=== PATIENT | male | born 1935 | race Caucasian/White ===

== ENCOUNTER 2017-10-22 11:43 | Inpatient (IN) | payer MEDICARE, OTHER, MEDICAID ==
[2017-10-22 14:34] LABS: ADD MAN DIFF? NO
[2017-10-22 14:38] LABS: BASOPHILS % 0.5 % (0.0-2.0); EOSINOPHILS # 0.2 10^3/ul (0.0-0.5); EOSINOPHILS % 2.9 % (0.0-7.0); HEMATOCRIT 26.1 % (42.0-52.0); LYMPHOCYTES # 1.2 10^3/ul (0.8-2.9); LYMPHOCYTES % 15.3 % (15.0-51.0); MEAN CORPUSCULAR HEMOGLOBIN 27.6 pg (29.0-33.0); MEAN CORPUSCULAR HGB CONC 30.7 g/dl (32.0-37.0); MEAN PLATELET VOLUME 9.9 fl (7.4-10.4); MONOCYTE # 0.8 10^3/ul (0.3-0.9); MONOCYTES % 9.7 % (0.0-11.0); NEUTROPHIL # 5.7 10^3/ul (1.6-7.5); PLATELET COUNT 402 10^3/UL (140-415); RED CELL DISTRIBUTION WIDTH 17.8 % (11.5-14.5)
[2017-10-22 14:59] LABS: ALANINE AMINOTRANSFERASE 17 IU/L (13-69); ALBUMIN 3.1 g/dl (3.3-4.9); ALBUMIN/GLOBULIN RATIO 0.56; ALKALINE PHOSPHATASE 129 IU/L (42-121); ANION GAP 18 (8-16); ASPARTATE AMINO TRANSFERASE 24 IU/L (15-46); BLOOD UREA NITROGEN 81 mg/dl (7-20); CALCIUM 9.1 mg/dl (8.4-10.2); CARBON DIOXIDE 24 mmol/L (21-31); CHLORIDE 100 mmol/L (97-110); CREATININE 1.79 mg/dl (0.61-1.24); GLUCOSE 77 mg/dl (70-220); LACTATE DEHYDROGENASE 408 IU/L (313-618); SODIUM 138 mmol/L (135-144); TOTAL PROTEIN 8.6 g/dl (6.1-8.1)
[2017-10-22 15:01] LABS: INR 1.39; IRON 49 ug/dl (35-150); PROTIME 17.3 Sec (11.9-14.9); PT RATIO 1.4
[2017-10-22 15:02] LABS: PARTIAL THROMBOPLASTIN TIME 40.2 Sec (25.0-35.0)
[2017-10-22 15:10] LABS: % IRON SATURATION 38 % SAT (22-52); TOTAL IRON BINDING CAPACITY 128 ug/dl (241-421)
[2017-10-22] MEDS: IPRATROPIUM (NEB) 0.5 MG/2.5 ML AMP NEB (15:25)
[2017-10-22] MEDS: ALBUTEROL 0.083% (NEB) 2.5 MG/3 ML AMP NEB (15:25)
[2017-10-22 15:40] LABS: ADD UMIC YES; UR ASCORBIC ACID 40 mg/dL (NEGATIVE); UR BACTERIA MANY /HPF (NONE SEEN); UR BILIRUBIN (Dip) NEGATIVE (NEGATIVE); UR BLOOD (Dip) NEGATIVE (NEGATIVE); UR CLARITY TURBID (CLEAR); UR COLOR AMBER (YELLOW); UR GLUCOSE (Dip) NEGATIVE (NEGATIVE); UR KETONES (Dip) NEGATIVE (NEGATIVE); UR LEUKOCYTE ESTERASE (Dip) 3+ Leu/ul (NEGATIVE); UR MUCUS FEW /HPF (NONE SEEN); UR NITRITE (Dip) NEGATIVE (NEGATIVE); UR NONSQUAMOUS EPITHELIAL CELL 4 /HPF (NONE SEEN); UR RBC 70 /HPF (0-5); UR SPECIFIC GRAVITY (Dip) 1.012 (1.003-1.030); UR TOTAL PROTEIN (Dip) 2+ mg/dl (NEGATIVE); UR UROBILINOGEN (Dip) NEGATIVE (NEGATIVE); UR WBC > 182 /HPF (0-5)
[2017-10-22] MEDS ORDERED: ONDANSETRON 4 MG INJ IV (16:00)
[2017-10-22] MEDS: CEFTRIAXONE 1 GM/50 ML (PMX) 50 ML IVPB (16:02)
[2017-10-22] MEDS: morphine 4 MG/ML VIAL IV (16:24)
[2017-10-22] MEDS: ONDANSETRON 4 MG INJ IV (16:24)
[2017-10-22] MEDS ORDERED: LOPERAMIDE 2 MG CAP PO (17:00)
[2017-10-22] MEDS ORDERED: LACTOBACILLUS ACIDOPHILUS GTB (21:00)
[2017-10-22] MEDS: CARBOXYMETHYLCELLULOSE 0.5% 0.1 ML OPH BOTH EYES (22:56)
[2017-10-22] MEDS: ACETAMINOPHEN 325 MG TAB PO (22:56)
[2017-10-22] MEDS: ASCORBIC ACID 500 MG TAB GTB (22:56)
[2017-10-22] MEDS: MEROPENEM 500MG/50 ML (PMX) 50 ML IVPB (22:56)
[2017-10-22] MEDS: LANSOPRAZOLE 30 MG CAP GTB (22:57)
[2017-10-22] MEDS: DEXTROSE 5%-0.45% NACL 1,000 ML IV (23:03)
[2017-10-23] MEDS: LORAZEPAM 0.5 MG TAB GTB (01:09)
[2017-10-23] MEDS: LANSOPRAZOLE 30 MG CAP GTB ×2 (05:35→17:17)
[2017-10-23 05:46] LABS: ADD MAN DIFF? NO
[2017-10-23 05:48] LABS: WHITE BLOOD COUNT 7.4 10^3/ul (4.8-10.8)
[2017-10-23 05:48] LABS: BASOPHILS % 0.5 % (0.0-2.0); EOSINOPHILS # 0.4 10^3/ul (0.0-0.5); EOSINOPHILS % 4.7 % (0.0-7.0); HEMATOCRIT 24.7 % (42.0-52.0); HEMOGLOBIN 7.9 g/dl (14.0-18.0); LYMPHOCYTES # 1.1 10^3/ul (0.8-2.9); LYMPHOCYTES % 14.8 % (15.0-51.0); MEAN CORPUSCULAR HEMOGLOBIN 28.1 pg (29.0-33.0); MEAN CORPUSCULAR VOLUME 87.9 fl (82.0-101.0); MEAN PLATELET VOLUME 10.1 fl (7.4-10.4); MONOCYTE # 0.8 10^3/ul (0.3-0.9); MONOCYTES % 10.6 % (0.0-11.0); NEUTROPHIL # 5.1 10^3/ul (1.6-7.5); NEUTROPHILS % 68.7 % (39.0-77.0); PLATELET COUNT 406 10^3/UL (140-415); RED BLOOD COUNT 2.81 10^6/ul (4.70-6.10); RED CELL DISTRIBUTION WIDTH 17.6 % (11.5-14.5)
[2017-10-23 06:16] LABS: ANION GAP 18 (8-16); BLOOD UREA NITROGEN 74 mg/dl (7-20); CALCIUM 8.8 mg/dl (8.4-10.2); CARBON DIOXIDE 22 mmol/L (21-31); CHLORIDE 103 mmol/L (97-110); CREATININE 1.77 mg/dl (0.61-1.24); GLUCOSE 71 mg/dl (70-220); POTASSIUM 3.5 mmol/L (3.5-5.1); SODIUM 139 mmol/L (135-144)
[2017-10-23] MEDS: ASCORBIC ACID 500 MG TAB GTB ×2 (09:04→21:53)
[2017-10-23] MEDS: ASPIRIN 81 MG TAB GTB (09:05)
[2017-10-23] MEDS: CARBOXYMETHYLCELLULOSE 0.5% 0.1 ML OPH BOTH EYES ×2 (09:06→21:51)
[2017-10-23] MEDS: MULTIVITAMINS/MINERALS TAB GTB (09:23)
[2017-10-23] MEDS: FERROUS SULFATE 60 MG/ML 5ML CUP GTB (09:23)
[2017-10-23] MEDS: MEROPENEM 500MG/50 ML (PMX) 50 ML IVPB ×2 (09:23→21:51)
[2017-10-23] MEDS: DEXTROSE 5%-0.45% NACL 1,000 ML IV ×3 (12:05→23:18)
[2017-10-23] MEDS: HYDROCODONE/APAP (5/325) TAB PO (17:17)
[2017-10-24 05:54] LABS: ADD MAN DIFF? NO
[2017-10-24 06:13] LABS: WHITE BLOOD COUNT 7.6 10^3/ul (4.8-10.8)
[2017-10-24 06:13] LABS: BASOPHILS % 0.5 % (0.0-2.0); EOSINOPHILS # 0.3 10^3/ul (0.0-0.5); EOSINOPHILS % 3.5 % (0.0-7.0); HEMATOCRIT 27.4 % (42.0-52.0); HEMOGLOBIN 8.5 g/dl (14.0-18.0); LYMPHOCYTES # 1.1 10^3/ul (0.8-2.9); LYMPHOCYTES % 14.8 % (15.0-51.0); MEAN CORPUSCULAR HEMOGLOBIN 28.1 pg (29.0-33.0); MEAN CORPUSCULAR VOLUME 90.4 fl (82.0-101.0); MEAN PLATELET VOLUME 9.8 fl (7.4-10.4); MONOCYTE # 0.7 10^3/ul (0.3-0.9); MONOCYTES % 9.5 % (0.0-11.0); NEUTROPHIL # 5.4 10^3/ul (1.6-7.5); NEUTROPHILS % 70.8 % (39.0-77.0); PLATELET COUNT 426 10^3/UL (140-415); RED BLOOD COUNT 3.03 10^6/ul (4.70-6.10); RED CELL DISTRIBUTION WIDTH 18.1 % (11.5-14.5)
[2017-10-24 06:47] LABS: ANION GAP 16 (8-16); BLOOD UREA NITROGEN 73 mg/dl (7-20); CALCIUM 8.8 mg/dl (8.4-10.2); CARBON DIOXIDE 24 mmol/L (21-31); CHLORIDE 106 mmol/L (97-110); GLUCOSE 105 mg/dl (70-220); POTASSIUM 4.4 mmol/L (3.5-5.1); SODIUM 142 mmol/L (135-144)
[2017-10-24] MEDS: ASCORBIC ACID 500 MG TAB GTB ×2 (09:43→20:40)
[2017-10-24] MEDS: MULTIVITAMINS 30 ML CUP PEG (09:43)
[2017-10-24] MEDS: FERROUS SULFATE 60 MG/ML 5ML CUP GTB (09:43)
[2017-10-24] MEDS: LANSOPRAZOLE 30 MG CAP GTB ×2 (09:43→19:18)
[2017-10-24] MEDS: LACTOBACILLUS RHAMNOSUS CAP PO ×2 (09:44→20:41)
[2017-10-24] MEDS: ASPIRIN 81 MG TAB GTB (09:44)
[2017-10-24] MEDS ORDERED: PENDING SANTYL ORDER FOR WOUND CARE XX (10:00)
[2017-10-24] MEDS: MEROPENEM 500MG/50 ML (PMX) 50 ML IVPB ×2 (10:57→20:40)
[2017-10-24] MEDS: EPOETIN ALFA (NESRD) 3,000 UNITS/ML VIAL IV (11:00)
[2017-10-24] MEDS: CARBOXYMETHYLCELLULOSE 0.5% 0.1 ML OPH BOTH EYES ×2 (11:00→21:00)
[2017-10-24] MEDS: ALBUTEROL/IPRATROPIUM (NEB) 3 ML AMP INH (18:02)
[2017-10-24] MEDS ORDERED: EPOETIN 10000 UNITS/ML (NON ESRD/NON ONCOLOGY) SC (19:30)
[2017-10-24] MEDS: POVIDONE IODINE 10% 28.4 GM OINT TOP (20:00)
[2017-10-24] MEDS: DEXTROSE 5%-0.45% NACL 1,000 ML IV (20:30)
[2017-10-24] MEDS: ACETAMINOPHEN 650MG/20.3ML CUP GTB (20:40)
[2017-10-24] MEDS: SODIUM HYPOCHLORITE 0.125% 473 ML BTL IRR (20:41)
[2017-10-25] MEDS: SODIUM HYPOCHLORITE 0.125% 473 ML BTL IRR ×2 (00:15→21:53)
[2017-10-25] MEDS: DEXTROSE 5%-0.45% NACL 1,000 ML IV ×3 (00:16→17:34)
[2017-10-25] MEDS: ALBUTEROL/IPRATROPIUM (NEB) 3 ML AMP INH (01:52)
[2017-10-25] MEDS: LANSOPRAZOLE 30 MG CAP GTB ×2 (05:40→17:34)
[2017-10-25 07:39] LABS: ADD MAN DIFF? NO
[2017-10-25 07:42] LABS: BASOPHILS % 0.3 % (0.0-2.0); EOSINOPHILS # 0.3 10^3/ul (0.0-0.5); EOSINOPHILS % 4.7 % (0.0-7.0); HEMATOCRIT 25.8 % (42.0-52.0); HEMOGLOBIN 7.8 g/dl (14.0-18.0); LYMPHOCYTES # 1.2 10^3/ul (0.8-2.9); LYMPHOCYTES % 20.4 % (15.0-51.0); MEAN CORPUSCULAR HEMOGLOBIN 27.9 pg (29.0-33.0); MEAN CORPUSCULAR HGB CONC 30.2 g/dl (32.0-37.0); MEAN CORPUSCULAR VOLUME 92.1 fl (82.0-101.0); MEAN PLATELET VOLUME 9.9 fl (7.4-10.4); MONOCYTE # 0.6 10^3/ul (0.3-0.9); NEUTROPHIL # 3.6 10^3/ul (1.6-7.5); NEUTROPHILS % 62.7 % (39.0-77.0); PLATELET COUNT 425 10^3/UL (140-415); RED CELL DISTRIBUTION WIDTH 18.1 % (11.5-14.5)
[2017-10-25 07:42] LABS: WHITE BLOOD COUNT 5.7 10^3/ul (4.8-10.8)
[2017-10-25 08:03] LABS: ANION GAP 15 (8-16); BLOOD UREA NITROGEN 60 mg/dl (7-20); CALCIUM 8.4 mg/dl (8.4-10.2); CARBON DIOXIDE 21 mmol/L (21-31); CHLORIDE 108 mmol/L (97-110); CREATININE 1.23 mg/dl (0.61-1.24); GLUCOSE 128 mg/dl (70-220); POTASSIUM 3.3 mmol/L (3.5-5.1); SODIUM 141 mmol/L (135-144)
[2017-10-25] MEDS ORDERED: POTASSIUM CHLORIDE (SR) 20 MEQ TAB PO (08:31)
[2017-10-25] MEDS: FERROUS SULFATE 60 MG/ML 5ML CUP GTB (08:58)
[2017-10-25] MEDS: ASPIRIN 81 MG TAB GTB (08:58)
[2017-10-25] MEDS: MULTIVITAMINS 30 ML CUP PEG (08:58)
[2017-10-25] MEDS: CARBOXYMETHYLCELLULOSE 0.5% 0.1 ML OPH BOTH EYES ×2 (08:58→21:52)
[2017-10-25] MEDS: LACTOBACILLUS RHAMNOSUS CAP PO ×2 (08:59→21:52)
[2017-10-25] MEDS: MEROPENEM 500MG/50 ML (PMX) 50 ML IVPB ×2 (08:59→21:52)
[2017-10-25] MEDS: POTASSIUM CHLORIDE 20 MEQ POWDER FOR ORAL SOLN PO (08:59)
[2017-10-25] MEDS: ASCORBIC ACID 500 MG TAB GTB ×2 (08:59→21:52)
[2017-10-25] MEDS: POVIDONE IODINE 10% 28.4 GM OINT TOP (09:03)
[2017-10-25 18:02] LABS: TRANSFERRIN 70 mg/dL (188-341)
[2017-10-25 20:05] LABS: OCCULT BLOOD STOOL NEGATIVE (NEGATIVE)
[2017-10-25] MEDS: IPRATROPIUM (NEB) 0.5 MG/2.5 ML AMP HHN (20:25)
[2017-10-25] MEDS: LEVALBUTEROL (NEB) 1.25 MG/0.5 ML AMP HHN (20:25)
[2017-10-26] MEDS: LEVALBUTEROL (NEB) 1.25 MG/0.5 ML AMP HHN ×4 (02:24→21:10)
[2017-10-26] MEDS: IPRATROPIUM (NEB) 0.5 MG/2.5 ML AMP HHN ×4 (02:24→21:10)
[2017-10-26 05:48] LABS: AADO2 Arterial 60.4 mmHg (7.0-24.0); Allen Test ACCEPTAB; Arterial Base Excess -2.9 mmol/L (-3.0-3); Arterial COHb 0.3 % (0.0-3.0); Arterial Fraction of Oxyhgb 97.2 % (93.0-99.0); Arterial HCO3 21.4 mmol/L (22.0-26.0); Arterial MetHb 0.5 % (0.0-1.5); Arterial Total Hemglobin 9.8 g/dl (12.0-18.0); Arterial pCO2 35.5 mmhg (35-45); MODE VENT - AC; Site Right Radial
[2017-10-26] MEDS: LANSOPRAZOLE 30 MG CAP GTB ×2 (06:37→17:42)
[2017-10-26] MEDS: FERROUS SULFATE 60 MG/ML 5ML CUP GTB (08:31)
[2017-10-26] MEDS: ASCORBIC ACID 500 MG TAB GTB ×2 (08:31→21:28)
[2017-10-26] MEDS: MULTIVITAMINS 30 ML CUP PEG (08:31)
[2017-10-26] MEDS: SODIUM HYPOCHLORITE 0.125% 473 ML BTL IRR ×2 (08:31→21:29)
[2017-10-26] MEDS: LACTOBACILLUS RHAMNOSUS CAP PO ×2 (08:31→21:29)
[2017-10-26] MEDS: ASPIRIN 81 MG TAB GTB (08:31)
[2017-10-26] MEDS: POVIDONE IODINE 10% 28.4 GM OINT TOP (08:32)
[2017-10-26] MEDS: MEROPENEM 500MG/50 ML (PMX) 50 ML IVPB ×2 (08:34→21:28)
[2017-10-26] MEDS: DEXTROSE 5%-0.45% NACL 1,000 ML IV (08:34)
[2017-10-26] MEDS: EPOETIN ALFA (NESRD) 3,000 UNITS/ML VIAL IV (08:36)
[2017-10-26] MEDS: CARBOXYMETHYLCELLULOSE 0.5% 0.1 ML OPH BOTH EYES ×2 (09:10→21:28)
[2017-10-26] MEDS: ACETAMINOPHEN 650MG/20.3ML CUP GTB (14:09)
[2017-10-26] MEDS: ZYVOX 600 MG TAB PO (15:11)
[2017-10-27] MEDS: ZYVOX 600 MG TAB PO ×3 (00:24→20:30)
[2017-10-27] MEDS: DEXTROSE 5%-0.45% NACL 1,000 ML IV (00:24)
[2017-10-27] MEDS: IPRATROPIUM (NEB) 0.5 MG/2.5 ML AMP HHN ×4 (02:02→21:53)
[2017-10-27] MEDS: LEVALBUTEROL (NEB) 1.25 MG/0.5 ML AMP HHN ×4 (02:02→21:53)
[2017-10-27] MEDS: LANSOPRAZOLE 30 MG CAP GTB ×2 (06:11→17:35)
[2017-10-27 08:36] LABS: ADD MAN DIFF? NO
[2017-10-27 08:40] LABS: WHITE BLOOD COUNT 6.8 10^3/ul (4.8-10.8)
[2017-10-27 08:40] LABS: BASOPHILS % 0.4 % (0.0-2.0); EOSINOPHILS # 0.2 10^3/ul (0.0-0.5); EOSINOPHILS % 2.5 % (0.0-7.0); HEMATOCRIT 28.7 % (42.0-52.0); HEMOGLOBIN 8.5 g/dl (14.0-18.0); LYMPHOCYTES % 14.5 % (15.0-51.0); MEAN CORPUSCULAR HEMOGLOBIN 27.3 pg (29.0-33.0); MEAN CORPUSCULAR HGB CONC 29.6 g/dl (32.0-37.0); MEAN CORPUSCULAR VOLUME 92.3 fl (82.0-101.0); MEAN PLATELET VOLUME 9.6 fl (7.4-10.4); MONOCYTE # 0.6 10^3/ul (0.3-0.9); MONOCYTES % 9.4 % (0.0-11.0); NEUTROPHIL # 4.9 10^3/ul (1.6-7.5); NUCLEATED RED BLOOD CELLS% 0.4 /100WBC (0.0-0.0); PLATELET COUNT 390 10^3/UL (140-415); RED BLOOD COUNT 3.11 10^6/ul (4.70-6.10)
[2017-10-27] MEDS: MULTIVITAMINS 30 ML CUP PEG (08:50)
[2017-10-27] MEDS: SODIUM HYPOCHLORITE 0.125% 473 ML BTL IRR ×2 (08:51→20:34)
[2017-10-27] MEDS: FERROUS SULFATE 60 MG/ML 5ML CUP GTB (08:51)
[2017-10-27] MEDS: LACTOBACILLUS RHAMNOSUS CAP PO ×2 (08:51→20:30)
[2017-10-27] MEDS: ASCORBIC ACID 500 MG TAB GTB ×2 (08:51→20:30)
[2017-10-27] MEDS: MEROPENEM 500MG/50 ML (PMX) 50 ML IVPB ×2 (08:51→20:31)
[2017-10-27] MEDS: POVIDONE IODINE 10% 28.4 GM OINT TOP (08:51)
[2017-10-27] MEDS: ASPIRIN 81 MG TAB GTB (08:51)
[2017-10-27] MEDS: CARBOXYMETHYLCELLULOSE 0.5% 0.1 ML OPH BOTH EYES ×2 (08:51→20:30)
[2017-10-27 09:04] LABS: ANION GAP 12 (8-16); BLOOD UREA NITROGEN 34 mg/dl (7-20); CALCIUM 8.5 mg/dl (8.4-10.2); CARBON DIOXIDE 23 mmol/L (21-31); CHLORIDE 110 mmol/L (97-110); CREATININE 0.78 mg/dl (0.61-1.24); GLUCOSE 127 mg/dl (70-220); SODIUM 141 mmol/L (135-144)
[2017-10-27] MEDS ORDERED: TOBRAMYCIN IV PER PHARMACY XX (13:30)
[2017-10-27] MEDS: SOD CHLORIDE 0.9% IVPB (15:22)
[2017-10-27] MEDS: TOBRAMYCIN IVPB (15:22)
[2017-10-27] MEDS: ERYTHROMYCIN BASE (EC) 250 MG TAB PO (20:30)
[2017-10-27] MEDS ORDERED: METOCLOPRAMIDE 10 MG INJ IV (21:00)
[2017-10-27] MEDS: ONDANSETRON 4 MG INJ IV (22:11)
[2017-10-28] MEDS: SOD CHLORIDE 0.9% 1,000 ML IV ×2 (01:00→13:30)
[2017-10-28] MEDS: IPRATROPIUM (NEB) 0.5 MG/2.5 ML AMP HHN ×4 (01:47→19:44)
[2017-10-28] MEDS: LEVALBUTEROL (NEB) 1.25 MG/0.5 ML AMP HHN ×4 (01:47→19:44)
[2017-10-28 05:54] LABS: ADD MAN DIFF? NO
[2017-10-28] MEDS: LANSOPRAZOLE 30 MG CAP GTB ×2 (05:54→18:31)
[2017-10-28 06:01] LABS: WHITE BLOOD COUNT 6.1 10^3/ul (4.8-10.8)
[2017-10-28 06:01] LABS: BASOPHILS % 0.2 % (0.0-2.0); EOSINOPHILS # 0.4 10^3/ul (0.0-0.5); EOSINOPHILS % 6.1 % (0.0-7.0); HEMATOCRIT 26.1 % (42.0-52.0); HEMOGLOBIN 7.8 g/dl (14.0-18.0); LYMPHOCYTES # 1.1 10^3/ul (0.8-2.9); LYMPHOCYTES % 18.2 % (15.0-51.0); MEAN CORPUSCULAR HEMOGLOBIN 27.8 pg (29.0-33.0); MEAN CORPUSCULAR HGB CONC 29.9 g/dl (32.0-37.0); MEAN CORPUSCULAR VOLUME 92.9 fl (82.0-101.0); MEAN PLATELET VOLUME 9.4 fl (7.4-10.4); MONOCYTE # 0.4 10^3/ul (0.3-0.9); MONOCYTES % 6.9 % (0.0-11.0); NEUTROPHIL # 4.1 10^3/ul (1.6-7.5); NEUTROPHILS % 67.3 % (39.0-77.0); NUCLEATED RED BLOOD CELLS% 0.3 /100WBC (0.0-0.0); PLATELET COUNT 389 10^3/UL (140-415); RED BLOOD COUNT 2.81 10^6/ul (4.70-6.10); RED CELL DISTRIBUTION WIDTH 19.3 % (11.5-14.5)
[2017-10-28 06:21] LABS: MAGNESIUM 1.6 mg/dl (1.7-2.5)
[2017-10-28 06:24] LABS: ANION GAP 13 (8-16); BLOOD UREA NITROGEN 32 mg/dl (7-20); CALCIUM 8.6 mg/dl (8.4-10.2); CARBON DIOXIDE 19 mmol/L (21-31); CHLORIDE 114 mmol/L (97-110); CREATININE 0.83 mg/dl (0.61-1.24); GLUCOSE 92 mg/dl (70-220); POTASSIUM 3.2 mmol/L (3.5-5.1); SODIUM 143 mmol/L (135-144)
[2017-10-28] MEDS: ASCORBIC ACID 500 MG TAB GTB ×2 (08:15→21:49)
[2017-10-28] MEDS: ERYTHROMYCIN BASE (EC) 250 MG TAB PO ×3 (08:15→21:49)
[2017-10-28] MEDS: FERROUS SULFATE 60 MG/ML 5ML CUP GTB (08:15)
[2017-10-28] MEDS: ASPIRIN 81 MG TAB GTB (08:15)
[2017-10-28] MEDS: MULTIVITAMINS 30 ML CUP PEG (08:15)
[2017-10-28] MEDS: ZYVOX 600 MG TAB PO ×2 (08:15→21:49)
[2017-10-28] MEDS: CARBOXYMETHYLCELLULOSE 0.5% 0.1 ML OPH BOTH EYES ×2 (08:15→21:49)
[2017-10-28] MEDS: LACTOBACILLUS RHAMNOSUS CAP PO ×2 (08:15→21:49)
[2017-10-28] MEDS: POVIDONE IODINE 10% 28.4 GM OINT TOP (08:16)
[2017-10-28] MEDS: POTASSIUM CHLORIDE 100 ML IVPB ×2 (08:16→13:39)
[2017-10-28] MEDS: SODIUM HYPOCHLORITE 0.125% 473 ML BTL IRR ×2 (08:16→21:48)
[2017-10-28] MEDS: EPOETIN ALFA (NESRD) 3,000 UNITS/ML VIAL IV (08:44)
[2017-10-28] MEDS: MAGNESIUM SULFATE 2 GM/50 ML 50 ML IVPB (10:41)
[2017-10-28] MEDS: MEROPENEM 500MG/50 ML (PMX) 50 ML IVPB ×2 (12:55→21:51)
[2017-10-28] MEDS: SOD CHLORIDE 0.9% IVPB (15:45)
[2017-10-28] MEDS: TOBRAMYCIN IVPB (15:45)
[2017-10-29] MEDS: LEVALBUTEROL (NEB) 1.25 MG/0.5 ML AMP HHN ×4 (01:29→20:20)
[2017-10-29] MEDS: IPRATROPIUM (NEB) 0.5 MG/2.5 ML AMP HHN ×4 (01:29→20:20)
[2017-10-29] MEDS: SOD CHLORIDE 0.9% 1,000 ML IV ×3 (02:12→17:05)
[2017-10-29] MEDS: LANSOPRAZOLE 30 MG CAP GTB ×2 (06:00→17:05)
[2017-10-29 07:03] LABS: ADD MAN DIFF? NO
[2017-10-29 07:13] LABS: WHITE BLOOD COUNT 5.2 10^3/ul (4.8-10.8)
[2017-10-29 07:13] LABS: BASOPHILS % 0.6 % (0.0-2.0); EOSINOPHILS # 0.3 10^3/ul (0.0-0.5); EOSINOPHILS % 5.7 % (0.0-7.0); HEMATOCRIT 28.7 % (42.0-52.0); HEMOGLOBIN 8.7 g/dl (14.0-18.0); LYMPHOCYTES % 19.3 % (15.0-51.0); MEAN CORPUSCULAR HEMOGLOBIN 27.9 pg (29.0-33.0); MEAN CORPUSCULAR HGB CONC 30.3 g/dl (32.0-37.0); MEAN PLATELET VOLUME 9.6 fl (7.4-10.4); MONOCYTE # 0.4 10^3/ul (0.3-0.9); MONOCYTES % 7.1 % (0.0-11.0); NEUTROPHIL # 3.5 10^3/ul (1.6-7.5); NEUTROPHILS % 66.2 % (39.0-77.0); PLATELET COUNT 406 10^3/UL (140-415); RED BLOOD COUNT 3.12 10^6/ul (4.70-6.10)
[2017-10-29 07:26] LABS: ANION GAP 15 (8-16); BLOOD UREA NITROGEN 26 mg/dl (7-20); CALCIUM 8.8 mg/dl (8.4-10.2); CARBON DIOXIDE 17 mmol/L (21-31); CHLORIDE 118 mmol/L (97-110); CREATININE 0.89 mg/dl (0.61-1.24); GLUCOSE 64 mg/dl (70-220); SODIUM 147 mmol/L (135-144)
[2017-10-29 07:32] LABS: POTASSIUM 2.9 mmol/L (3.5-5.1)
[2017-10-29] MEDS: MEROPENEM 500MG/50 ML (PMX) 50 ML IVPB ×2 (10:31→21:13)
[2017-10-29] MEDS: POVIDONE IODINE 10% 28.4 GM OINT TOP (10:33)
[2017-10-29] MEDS: CARBOXYMETHYLCELLULOSE 0.5% 0.1 ML OPH BOTH EYES ×2 (10:34→21:02)
[2017-10-29] MEDS: SODIUM HYPOCHLORITE 0.125% 473 ML BTL IRR ×2 (10:35→21:03)
[2017-10-29] MEDS: ERYTHROMYCIN BASE (EC) 250 MG TAB PO ×3 (11:10→21:02)
[2017-10-29] MEDS: ASPIRIN 81 MG TAB GTB (11:10)
[2017-10-29] MEDS: ASCORBIC ACID 500 MG TAB GTB ×2 (11:10→21:02)
[2017-10-29] MEDS: POTASSIUM CHLORIDE (SR) 20 MEQ TAB PO ×2 (11:11→21:01)
[2017-10-29] MEDS: ZYVOX 600 MG TAB PO ×2 (11:11→21:02)
[2017-10-29] MEDS: FERROUS SULFATE 60 MG/ML 5ML CUP GTB (11:11)
[2017-10-29] MEDS: MULTIVITAMINS 30 ML CUP PEG (11:11)
[2017-10-29] MEDS: LACTOBACILLUS RHAMNOSUS CAP PO ×2 (11:11→21:13)
[2017-10-29 13:34] LABS: MAGNESIUM 1.9 mg/dl (1.7-2.5)
[2017-10-29] MEDS: [UNRECOGNIZED DRUG - REMARK] XX (14:04)
[2017-10-29] MEDS: SOD CHLORIDE 0.9% IVPB (14:58)
[2017-10-29] MEDS: TOBRAMYCIN IVPB (14:58)
[2017-10-29 20:00] LABS: ANION GAP 13 (8-16); BLOOD UREA NITROGEN 25 mg/dl (7-20); CALCIUM 8.4 mg/dl (8.4-10.2); CARBON DIOXIDE 17 mmol/L (21-31); CHLORIDE 120 mmol/L (97-110); CREATININE 0.88 mg/dl (0.61-1.24); SODIUM 147 mmol/L (135-144)
[2017-10-29 20:06] LABS: GLUCOSE 47 mg/dl (70-220); POTASSIUM 2.9 mmol/L (3.5-5.1)
[2017-10-29] MEDS: DEXTROSE 50% 50 ML SYRINGE IV (21:01)
[2017-10-30] MEDS: IPRATROPIUM (NEB) 0.5 MG/2.5 ML AMP HHN ×4 (01:29→19:47)
[2017-10-30] MEDS: LEVALBUTEROL (NEB) 1.25 MG/0.5 ML AMP HHN ×4 (01:29→19:47)
[2017-10-30] MEDS: SOD CHLORIDE 0.9% 1,000 ML IV (06:16)
[2017-10-30] MEDS: LANSOPRAZOLE 30 MG CAP GTB ×2 (06:16→18:23)
[2017-10-30 06:57] LABS: ADD MAN DIFF? NO
[2017-10-30 06:58] LABS: BASOPHILS % 0.2 % (0.0-2.0); EOSINOPHILS # 0.2 10^3/ul (0.0-0.5); EOSINOPHILS % 3.3 % (0.0-7.0); HEMATOCRIT 26.7 % (42.0-52.0); HEMOGLOBIN 7.9 g/dl (14.0-18.0); LYMPHOCYTES # 0.8 10^3/ul (0.8-2.9); LYMPHOCYTES % 17.8 % (15.0-51.0); MEAN CORPUSCULAR HEMOGLOBIN 27.7 pg (29.0-33.0); MEAN CORPUSCULAR HGB CONC 29.6 g/dl (32.0-37.0); MEAN CORPUSCULAR VOLUME 93.7 fl (82.0-101.0); MEAN PLATELET VOLUME 9.6 fl (7.4-10.4); MONOCYTE # 0.4 10^3/ul (0.3-0.9); MONOCYTES % 7.8 % (0.0-11.0); NEUTROPHIL # 3.2 10^3/ul (1.6-7.5); NEUTROPHILS % 70.2 % (39.0-77.0); PLATELET COUNT 374 10^3/UL (140-415); RED BLOOD COUNT 2.85 10^6/ul (4.70-6.10); RED CELL DISTRIBUTION WIDTH 20.3 % (11.5-14.5)
[2017-10-30 06:58] LABS: WHITE BLOOD COUNT 4.6 10^3/ul (4.8-10.8)
[2017-10-30 07:22] LABS: ANION GAP 12 (8-16); BLOOD UREA NITROGEN 23 mg/dl (7-20); CALCIUM 8.5 mg/dl (8.4-10.2); CARBON DIOXIDE 18 mmol/L (21-31); CHLORIDE 122 mmol/L (97-110); CREATININE 0.88 mg/dl (0.61-1.24); GLUCOSE 79 mg/dl (70-220); POTASSIUM 3.2 mmol/L (3.5-5.1); SODIUM 149 mmol/L (135-144)
[2017-10-30] MEDS: FERROUS SULFATE 60 MG/ML 5ML CUP GTB (09:00)
[2017-10-30] MEDS: ASPIRIN 81 MG TAB GTB (09:17)
[2017-10-30] MEDS: LACTOBACILLUS RHAMNOSUS CAP PO ×2 (09:17→20:59)
[2017-10-30] MEDS: ERYTHROMYCIN BASE (EC) 250 MG TAB PO ×3 (09:17→20:59)
[2017-10-30] MEDS: MULTIVITAMINS 30 ML CUP PEG (09:17)
[2017-10-30] MEDS: ASCORBIC ACID 500 MG TAB GTB ×2 (09:17→20:59)
[2017-10-30] MEDS: SODIUM HYPOCHLORITE 0.125% 473 ML BTL IRR ×2 (09:18→20:59)
[2017-10-30] MEDS: POVIDONE IODINE 10% 28.4 GM OINT TOP (09:18)
[2017-10-30] MEDS: MEROPENEM 500MG/50 ML (PMX) 50 ML IVPB ×2 (09:22→21:00)
[2017-10-30] MEDS: CARBOXYMETHYLCELLULOSE 0.5% 0.1 ML OPH BOTH EYES ×2 (09:23→20:59)
[2017-10-30] MEDS: ZYVOX 600 MG TAB PO ×2 (09:23→20:59)
[2017-10-30] MEDS: POTASSIUM CHLORIDE 100 ML IVPB (16:00)
[2017-10-30] MEDS: TOBRAMYCIN 100 MG in SOD CHLORIDE 0.9% 100 ML IVPB (18:23)
[2017-10-31] MEDS: LEVALBUTEROL (NEB) 1.25 MG/0.5 ML AMP HHN ×4 (01:22→20:35)
[2017-10-31] MEDS: IPRATROPIUM (NEB) 0.5 MG/2.5 ML AMP HHN ×4 (01:22→20:35)
[2017-10-31] MEDS: LANSOPRAZOLE 30 MG CAP GTB ×2 (05:08→17:46)
[2017-10-31] MEDS: SOD CHLORIDE 0.9% 1,000 ML IV (05:08)
[2017-10-31 06:11] LABS: ADD MAN DIFF? NO
[2017-10-31 06:23] LABS: WHITE BLOOD COUNT 4.2 10^3/ul (4.8-10.8)
[2017-10-31 06:23] LABS: BASOPHILS % 0.2 % (0.0-2.0); EOSINOPHILS # 0.2 10^3/ul (0.0-0.5); EOSINOPHILS % 4.3 % (0.0-7.0); HEMATOCRIT 26.3 % (42.0-52.0); LYMPHOCYTES # 0.9 10^3/ul (0.8-2.9); LYMPHOCYTES % 21.8 % (15.0-51.0); MEAN CORPUSCULAR HEMOGLOBIN 28.2 pg (29.0-33.0); MEAN CORPUSCULAR HGB CONC 30.4 g/dl (32.0-37.0); MEAN CORPUSCULAR VOLUME 92.6 fl (82.0-101.0); MEAN PLATELET VOLUME 9.4 fl (7.4-10.4); MONOCYTE # 0.5 10^3/ul (0.3-0.9); MONOCYTES % 10.8 % (0.0-11.0); NEUTROPHIL # 2.6 10^3/ul (1.6-7.5); NEUTROPHILS % 62.2 % (39.0-77.0); PLATELET COUNT 298 10^3/UL (140-415); RED BLOOD COUNT 2.84 10^6/ul (4.70-6.10); RED CELL DISTRIBUTION WIDTH 20.1 % (11.5-14.5)
[2017-10-31 06:38] LABS: ALANINE AMINOTRANSFERASE 27 IU/L (13-69); ALBUMIN 2.6 g/dl (3.3-4.9); ALBUMIN/GLOBULIN RATIO 0.57; ALKALINE PHOSPHATASE 91 IU/L (42-121); ANION GAP 11 (8-16); ASPARTATE AMINO TRANSFERASE 23 IU/L (15-46); BLOOD UREA NITROGEN 19 mg/dl (7-20); CALCIUM 8.5 mg/dl (8.4-10.2); CARBON DIOXIDE 19 mmol/L (21-31); CHLORIDE 121 mmol/L (97-110); CREATININE 0.88 mg/dl (0.61-1.24); GLUCOSE 104 mg/dl (70-220); POTASSIUM 3.3 mmol/L (3.5-5.1); SODIUM 148 mmol/L (135-144); TOTAL PROTEIN 7.1 g/dl (6.1-8.1)
[2017-10-31] MEDS: ASPIRIN 81 MG TAB GTB (08:46)
[2017-10-31] MEDS: LACTOBACILLUS RHAMNOSUS CAP PO ×2 (08:46→20:57)
[2017-10-31] MEDS: FERROUS SULFATE 60 MG/ML 5ML CUP GTB (08:46)
[2017-10-31] MEDS: ASCORBIC ACID 500 MG TAB GTB ×2 (08:46→20:57)
[2017-10-31] MEDS: ZYVOX 600 MG TAB PO ×2 (08:46→20:56)
[2017-10-31] MEDS: MULTIVITAMINS 30 ML CUP PEG (08:46)
[2017-10-31] MEDS: ERYTHROMYCIN BASE (EC) 250 MG TAB PO ×3 (08:46→20:58)
[2017-10-31] MEDS: POVIDONE IODINE 10% 28.4 GM OINT TOP (08:47)
[2017-10-31] MEDS: SODIUM HYPOCHLORITE 0.125% 473 ML BTL IRR ×2 (08:47→20:55)
[2017-10-31] MEDS: CARBOXYMETHYLCELLULOSE 0.5% 0.1 ML OPH BOTH EYES ×2 (08:48→21:00)
[2017-10-31] MEDS: D5W + KCL 20 MEQ 1,000 ML IV ×2 (12:00→23:27)
[2017-10-31] MEDS: MEROPENEM 500MG/50 ML (PMX) 50 ML IVPB ×2 (12:01→21:04)
[2017-10-31] MEDS: TOBRAMYCIN 100 MG in SOD CHLORIDE 0.9% 100 ML IVPB (17:46)
[2017-10-31] MEDS: EPOETIN ALFA (NESRD) 3,000 UNITS/ML VIAL IV (18:01)
[2017-10-31] MEDS: HYDROCODONE/APAP (5/325) TAB PO (20:57)
[2017-11-01] MEDS: IPRATROPIUM (NEB) 0.5 MG/2.5 ML AMP HHN ×4 (02:01→19:57)
[2017-11-01] MEDS: LEVALBUTEROL (NEB) 1.25 MG/0.5 ML AMP HHN ×4 (02:01→19:57)
[2017-11-01] MEDS: LANSOPRAZOLE 30 MG CAP GTB ×2 (04:57→17:54)
[2017-11-01 08:41] LABS: ADD MAN DIFF? NO
[2017-11-01] MEDS: FERROUS SULFATE 60 MG/ML 5ML CUP GTB (08:56)
[2017-11-01] MEDS: MULTIVITAMINS 30 ML CUP PEG (08:56)
[2017-11-01] MEDS: ZYVOX 600 MG TAB PO ×2 (08:56→21:55)
[2017-11-01] MEDS: ASCORBIC ACID 500 MG TAB GTB ×2 (08:56→21:55)
[2017-11-01] MEDS: ASPIRIN 81 MG TAB GTB (08:56)
[2017-11-01] MEDS: LACTOBACILLUS RHAMNOSUS CAP PO ×2 (08:56→21:55)
[2017-11-01] MEDS: ERYTHROMYCIN BASE (EC) 250 MG TAB PO ×3 (08:56→21:55)
[2017-11-01] MEDS: MEROPENEM 500MG/50 ML (PMX) 50 ML IVPB ×2 (09:05→20:38)
[2017-11-01] MEDS: SODIUM HYPOCHLORITE 0.125% 473 ML BTL IRR ×2 (09:05→21:56)
[2017-11-01] MEDS: POVIDONE IODINE 10% 28.4 GM OINT TOP (09:06)
[2017-11-01 09:10] LABS: ANION GAP 11 (8-16); BLOOD UREA NITROGEN 20 mg/dl (7-20); CALCIUM 8.2 mg/dl (8.4-10.2); CARBON DIOXIDE 18 mmol/L (21-31); CHLORIDE 116 mmol/L (97-110); CREATININE 0.82 mg/dl (0.61-1.24); GLUCOSE 113 mg/dl (70-220); POTASSIUM 3.3 mmol/L (3.5-5.1); SODIUM 142 mmol/L (135-144)
[2017-11-01 09:39] LABS: BASOPHILS % 0.4 % (0.0-2.0); EOSINOPHILS # 0.3 10^3/ul (0.0-0.5); EOSINOPHILS % 5.9 % (0.0-7.0); HEMATOCRIT 27.4 % (42.0-52.0); HEMOGLOBIN 8.3 g/dl (14.0-18.0); LYMPHOCYTES % 17.3 % (15.0-51.0); MEAN CORPUSCULAR HEMOGLOBIN 28.7 pg (29.0-33.0); MEAN CORPUSCULAR HGB CONC 30.3 g/dl (32.0-37.0); MEAN CORPUSCULAR VOLUME 94.8 fl (82.0-101.0); MEAN PLATELET VOLUME 9.4 fl (7.4-10.4); MONOCYTE # 0.5 10^3/ul (0.3-0.9); MONOCYTES % 9.1 % (0.0-11.0); NEUTROPHIL # 3.7 10^3/ul (1.6-7.5); NEUTROPHILS % 66.8 % (39.0-77.0); PLATELET COUNT 285 10^3/UL (140-415); RED BLOOD COUNT 2.89 10^6/ul (4.70-6.10)
[2017-11-01 09:39] LABS: WHITE BLOOD COUNT 5.6 10^3/ul (4.8-10.8)
[2017-11-01] MEDS: CARBOXYMETHYLCELLULOSE 0.5% 0.1 ML OPH BOTH EYES ×2 (14:41→21:54)
[2017-11-01] MEDS: POTASSIUM CHLORIDE 100 ML IVPB (15:26)
[2017-11-01] MEDS: TOBRAMYCIN 100 MG in SOD CHLORIDE 0.9% 100 ML IVPB (17:54)
[2017-11-01] MEDS: CITRIC ACID/SODIUM CITRATE 15 ML CUP PO (21:54)
[2017-11-01] MEDS: HYDROCODONE/APAP (5/325) TAB PO (21:56)
[2017-11-02] MEDS: IPRATROPIUM (NEB) 0.5 MG/2.5 ML AMP HHN ×3 (01:53→13:37)
[2017-11-02] MEDS: LEVALBUTEROL (NEB) 1.25 MG/0.5 ML AMP HHN ×3 (01:53→13:37)
[2017-11-02] MEDS: LANSOPRAZOLE 30 MG CAP GTB ×2 (05:43→17:43)
[2017-11-02 08:54] LABS: ADD MAN DIFF? NO
[2017-11-02 09:02] LABS: BASOPHILS % 0.6 % (0.0-2.0); EOSINOPHILS # 0.3 10^3/ul (0.0-0.5); EOSINOPHILS % 6.8 % (0.0-7.0); HEMATOCRIT 26.8 % (42.0-52.0); HEMOGLOBIN 8.2 g/dl (14.0-18.0); LYMPHOCYTES # 0.9 10^3/ul (0.8-2.9); LYMPHOCYTES % 18.8 % (15.0-51.0); MEAN CORPUSCULAR HEMOGLOBIN 28.8 pg (29.0-33.0); MEAN CORPUSCULAR HGB CONC 30.6 g/dl (32.0-37.0); MEAN PLATELET VOLUME 9.2 fl (7.4-10.4); MONOCYTE # 0.4 10^3/ul (0.3-0.9); MONOCYTES % 8.4 % (0.0-11.0); NEUTROPHIL # 3.2 10^3/ul (1.6-7.5); NEUTROPHILS % 64.6 % (39.0-77.0); PLATELET COUNT 211 10^3/UL (140-415); RED BLOOD COUNT 2.85 10^6/ul (4.70-6.10); RED CELL DISTRIBUTION WIDTH 20.3 % (11.5-14.5)
[2017-11-02 09:35] LABS: ANION GAP 13 (8-16); BLOOD UREA NITROGEN 21 mg/dl (7-20); CALCIUM 8.3 mg/dl (8.4-10.2); CARBON DIOXIDE 18 mmol/L (21-31); CHLORIDE 116 mmol/L (97-110); CREATININE 0.75 mg/dl (0.61-1.24); GLUCOSE 89 mg/dl (70-220); POTASSIUM 3.8 mmol/L (3.5-5.1); SODIUM 143 mmol/L (135-144)
[2017-11-02] MEDS: CITRIC ACID/SODIUM CITRATE 15 ML CUP PO (09:40)
[2017-11-02] MEDS: MEROPENEM 500MG/50 ML (PMX) 50 ML IVPB (09:40)
[2017-11-02] MEDS: FERROUS SULFATE 60 MG/ML 5ML CUP GTB (09:40)
[2017-11-02] MEDS: MULTIVITAMINS 30 ML CUP PEG (09:40)
[2017-11-02] MEDS: LACTOBACILLUS RHAMNOSUS CAP PO (09:41)
[2017-11-02] MEDS: CARBOXYMETHYLCELLULOSE 0.5% 0.1 ML OPH BOTH EYES (09:41)
[2017-11-02] MEDS: ZYVOX 600 MG TAB PO (09:41)
[2017-11-02] MEDS: ASPIRIN 81 MG TAB GTB (09:41)
[2017-11-02] MEDS: SODIUM HYPOCHLORITE 0.125% 473 ML BTL IRR (09:41)
[2017-11-02] MEDS: ERYTHROMYCIN BASE (EC) 250 MG TAB PO ×2 (09:41→13:53)
[2017-11-02] MEDS: ASCORBIC ACID 500 MG TAB GTB (09:41)
[2017-11-02] MEDS: POVIDONE IODINE 10% 28.4 GM OINT TOP (09:41)
[2017-11-02] MEDS: TOBRAMYCIN 100 MG in SOD CHLORIDE 0.9% 100 ML IVPB (17:43)
[2017-11-02] MEDS: EPOETIN ALFA (NESRD) 3,000 UNITS/ML VIAL IV (17:44)
== END 2017-11-02 18:56 | DRG 870 ==
LOC: E/R 11:43 → ICU 15:51 → TEL 10-24 23:39
PROC: 5A1955Z Respiratory Ventilation, Greater than 96 Consecutive Hours (ICD-10-PCS; principal; 2017-10-22)
DX: A41.9 Sepsis, unspecified organism (principal); J18.9 Pneumonia, unspecified organism; L89.154 Pressure ulcer of sacral region, stage 4; N17.0 Acute kidney failure with tubular necrosis; N39.0 Urinary tract infection, site not specified; K94.23 Gastrostomy malfunction; G93.1 Anoxic brain damage, not elsewhere classified; J96.10 Chronic respiratory failure, unspecified whether with hypoxia or hypercapnia; Z99.11 Dependence on respirator [ventilator] status; F03.91 Unspecified dementia, unspecified severity, with behavioral disturbance; M86.8X8 Other osteomyelitis, other site; K56.7 Ileus, unspecified; E87.0 Hyperosmolality and hypernatremia; J90 Pleural effusion, not elsewhere classified; K22.10 Ulcer of esophagus without bleeding; N13.4 Hydroureter; I12.9 Hypertensive chronic kidney disease with stage 1 through stage 4 chronic kidney disease, or unspecified chronic kidney disease; N18.9 Chronic kidney disease, unspecified; Z86.74 Personal history of sudden cardiac arrest; Z93.0 Tracheostomy status; J43.9 Emphysema, unspecified; R13.10 Dysphagia, unspecified; E78.5 Hyperlipidemia, unspecified; N31.9 Neuromuscular dysfunction of bladder, unspecified; Z87.440 Personal history of urinary (tract) infections; I69.965 Other paralytic syndrome following unspecified cerebrovascular disease, bilateral; H54.40 Blindness, one eye, unspecified eye; D63.1 Anemia in chronic kidney disease; Z87.19 Personal history of other diseases of the digestive system; Q54.8 Other hypospadias; Z87.891 Personal history of nicotine dependence; F44.4 Conversion disorder with motor symptom or deficit; E87.6 Hypokalemia; E83.42 Hypomagnesemia; K80.20 Calculus of gallbladder without cholecystitis without obstruction; K21.0 Gastro-esophageal reflux disease with esophagitis; E86.0 Dehydration; K76.89 Other specified diseases of liver; N28.1 Cyst of kidney, acquired; N26.1 Atrophy of kidney (terminal); M48.56XD Collapsed vertebra, not elsewhere classified, lumbar region, subsequent encounter for fracture with routine healing; M85.80 Other specified disorders of bone density and structure, unspecified site; B96.20 Unspecified Escherichia coli [E. coli] as the cause of diseases classified elsewhere; B96.89 Other specified bacterial agents as the cause of diseases classified elsewhere
CPT/HCPCS: 36600; 71045; 74018; 74176; 80048; 80053; 80200; 81001; 82270; 82728; 82803; 82962; 83540; 83615; 83735; 84466; 85025; 85610; 85651; 85730; 86850; 86900; 86901; 87040; 87070; 87075; 87081; 87086; 93005; 94002; 94003; 94640; 94664

== ENCOUNTER 2017-11-07 14:41 | Inpatient (IN) | payer MEDICARE, OTHER ==
[2017-11-07 15:40] LABS: ADD MAN DIFF? NO
[2017-11-07 15:47] LABS: WHITE BLOOD COUNT 11.8 10^3/ul (4.8-10.8)
[2017-11-07 15:47] LABS: BASOPHIL # 0.1 10^3/ul (0.0-0.1); BASOPHILS % 0.6 % (0.0-2.0); EOSINOPHILS # 0.7 10^3/ul (0.0-0.5); EOSINOPHILS % 6.2 % (0.0-7.0); HEMATOCRIT 29.3 % (42.0-52.0); HEMOGLOBIN 8.8 g/dl (14.0-18.0); LYMPHOCYTES # 1.6 10^3/ul (0.8-2.9); LYMPHOCYTES % 13.7 % (15.0-51.0); MEAN CORPUSCULAR HEMOGLOBIN 28.2 pg (29.0-33.0); MEAN CORPUSCULAR VOLUME 93.9 fl (82.0-101.0); MEAN PLATELET VOLUME 9.9 fl (7.4-10.4); MONOCYTE # 0.7 10^3/ul (0.3-0.9); MONOCYTES % 6.3 % (0.0-11.0); NEUTROPHIL # 8.6 10^3/ul (1.6-7.5); NEUTROPHILS % 72.8 % (39.0-77.0); PLATELET COUNT 162 10^3/UL (140-415); RED BLOOD COUNT 3.12 10^6/ul (4.70-6.10); RED CELL DISTRIBUTION WIDTH 19.8 % (11.5-14.5)
[2017-11-07 16:07] LABS: INR 1.14; PROTIME 14.8 Sec (11.9-14.9); PT RATIO 1.2
[2017-11-07 16:08] LABS: PARTIAL THROMBOPLASTIN TIME 36.3 Sec (25.0-35.0)
[2017-11-07 16:09] LABS: LACTIC ACID 1.5 mmol/L (0.5-2.0)
[2017-11-07 16:11] LABS: ALANINE AMINOTRANSFERASE 19 IU/L (13-69); ALBUMIN 2.9 g/dl (3.3-4.9); ALKALINE PHOSPHATASE 118 IU/L (42-121); ANION GAP 16 (8-16); ASPARTATE AMINO TRANSFERASE 18 IU/L (15-46); BILIRUBIN,INDIRECT 0.2 mg/dl (0-1.1); BILIRUBIN,TOTAL 0.2 mg/dl (0.2-1.3); BLOOD UREA NITROGEN 26 mg/dl (7-20); CALCIUM 8.4 mg/dl (8.4-10.2); CARBON DIOXIDE 18 mmol/L (21-31); CHLORIDE 113 mmol/L (97-110); CREATININE 1.08 mg/dl (0.61-1.24); GLUCOSE 133 mg/dl (70-220); POTASSIUM 3.3 mmol/L (3.5-5.1); SODIUM 144 mmol/L (135-144); TOTAL PROTEIN 7.7 g/dl (6.1-8.1)
[2017-11-07 16:22] LABS: TROPONIN-I 0.035 ng/ml (0.00-0.12)
[2017-11-07] MEDS ORDERED: VANCOMYCIN 1 GM (PMX) 250 ML IVPB (16:30)
[2017-11-07] MEDS ORDERED: POTASSIUM CHLORIDE 100 ML IVPB (16:30)
[2017-11-07] MEDS: PIPER-TAZO 3.375 GM IV (PMX) 100 ML IVPB (16:30)
[2017-11-07 18:11] LABS: AADO2 Arterial 71.2 mmHg (7.0-24.0); Allen Test ACCEPTAB; Arterial Base Excess -4.4 mmol/L (-3.0-3); Arterial Blood Gas Oxygen Sat 99.4 mmHG (95.0-100.0); Arterial COHb 0.4 % (0.0-3.0); Arterial Fraction of Oxyhgb 98.5 % (93.0-99.0); Arterial HCO3 21.3 mmol/L (22.0-26.0); Arterial MetHb 0.5 % (0.0-1.5); Arterial Total Hemglobin 11.8 g/dl (12.0-18.0); Arterial pCO2 41.4 mmhg (35-45); MODE VENT - AC; Site Right Radial
[2017-11-07 20:22] LABS: LACTIC ACID 1.2 mmol/L (0.5-2.0)
[2017-11-07] MEDS: LANSOPRAZOLE 30 MG CAP GTB (21:00)
[2017-11-07] MEDS: ASCORBIC ACID 500 MG TAB GTB (21:00)
[2017-11-07] MEDS ORDERED: CITRIC ACID/NA CIT (1 MEQ/ML POSYG) GTB (21:00)
[2017-11-07] MEDS: CARBOXYMETHYLCELLULOSE 0.5% 0.1 ML OPH BOTH EYES (21:00)
[2017-11-07 23:42] LABS: LACTIC ACID 1.4 mmol/L (0.5-2.0)
[2017-11-08 05:03] LABS: ADD MAN DIFF? NO
[2017-11-08 05:10] LABS: WHITE BLOOD COUNT 4.5 10^3/ul (4.8-10.8)
[2017-11-08 05:10] LABS: BASOPHILS % 0.4 % (0.0-2.0); EOSINOPHILS # 0.4 10^3/ul (0.0-0.5); HEMATOCRIT 26.1 % (42.0-52.0); HEMOGLOBIN 8.1 g/dl (14.0-18.0); LYMPHOCYTES # 0.9 10^3/ul (0.8-2.9); MEAN CORPUSCULAR VOLUME 93.5 fl (82.0-101.0); MEAN PLATELET VOLUME 10.4 fl (7.4-10.4); MONOCYTE # 0.4 10^3/ul (0.3-0.9); MONOCYTES % 8.5 % (0.0-11.0); NEUTROPHIL # 2.8 10^3/ul (1.6-7.5); NEUTROPHILS % 61.9 % (39.0-77.0); PLATELET COUNT 117 10^3/UL (140-415); RED BLOOD COUNT 2.79 10^6/ul (4.70-6.10); RED CELL DISTRIBUTION WIDTH 18.9 % (11.5-14.5)
[2017-11-08 05:40] LABS: ANION GAP 14 (8-16); BLOOD UREA NITROGEN 24 mg/dl (7-20); CALCIUM 8.4 mg/dl (8.4-10.2); CARBON DIOXIDE 18 mmol/L (21-31); CHLORIDE 116 mmol/L (97-110); GLUCOSE 68 mg/dl (70-220); POTASSIUM 3.5 mmol/L (3.5-5.1); SODIUM 144 mmol/L (135-144)
[2017-11-08] MEDS: ASPIRIN 81 MG TAB GTB (09:46)
[2017-11-08] MEDS: LANSOPRAZOLE 30 MG CAP GTB ×2 (09:46→22:14)
[2017-11-08] MEDS: ASCORBIC ACID 500 MG TAB GTB ×2 (09:46→22:14)
[2017-11-08] MEDS: FERROUS SULFATE (EC) 325 MG TAB PO (09:46)
[2017-11-08] MEDS: CITRIC ACID/SODIUM CITRATE 15 ML CUP GTB ×2 (09:47→22:14)
[2017-11-08] MEDS ORDERED: LORAZEPAM 2 MG INJ (16:43)
[2017-11-08] MEDS: LORAZEPAM 2 MG INJ IV (17:05)
[2017-11-08] MEDS: PIPER-TAZO 3.375 GM IV (PMX) 100 ML IVPB (20:26)
[2017-11-08] MEDS: SOD CHLORIDE 0.9% 2,540 ML IV (20:27)
[2017-11-08] MEDS ORDERED: POTASSIUM CHLORIDE 100 ML IVPB (21:00)
[2017-11-08] MEDS: POTASSIUM CHLORIDE 20 MEQ/SW 100 ML IVPB ×2 (22:13→22:55)
[2017-11-08] MEDS: VANCOMYCIN 1 GM (PMX) 250 ML IVPB (23:57)
[2017-11-08] MEDS: CARBOXYMETHYLCELLULOSE 0.5% 0.1 ML OPH BOTH EYES ×2 (23:58)
[2017-11-09 05:52] LABS: ADD MAN DIFF? NO
[2017-11-09 05:57] LABS: BASOPHILS % 0.5 % (0.0-2.0); EOSINOPHILS # 0.4 10^3/ul (0.0-0.5); HEMATOCRIT 27.1 % (42.0-52.0); HEMOGLOBIN 8.1 g/dl (14.0-18.0); LYMPHOCYTES # 0.7 10^3/ul (0.8-2.9); LYMPHOCYTES % 11.3 % (15.0-51.0); MEAN CORPUSCULAR HEMOGLOBIN 28.4 pg (29.0-33.0); MEAN CORPUSCULAR HGB CONC 29.9 g/dl (32.0-37.0); MEAN CORPUSCULAR VOLUME 95.1 fl (82.0-101.0); MONOCYTE # 0.4 10^3/ul (0.3-0.9); NEUTROPHIL # 4.5 10^3/ul (1.6-7.5); NEUTROPHILS % 74.7 % (39.0-77.0); PLATELET COUNT 120 10^3/UL (140-415); RED BLOOD COUNT 2.85 10^6/ul (4.70-6.10); RED CELL DISTRIBUTION WIDTH 19.3 % (11.5-14.5)
[2017-11-09 06:36] LABS: ANION GAP 17 (8-16); BLOOD UREA NITROGEN 18 mg/dl (7-20); CALCIUM 8.2 mg/dl (8.4-10.2); CARBON DIOXIDE 16 mmol/L (21-31); CHLORIDE 120 mmol/L (97-110); CREATININE 0.94 mg/dl (0.61-1.24); GLUCOSE 52 mg/dl (70-220); POTASSIUM 3.9 mmol/L (3.5-5.1); SODIUM 149 mmol/L (135-144)
[2017-11-09] MEDS: DEXTROSE 50% 50 ML SYRINGE IV (08:53)
[2017-11-09] MEDS: DEXTROSE 5% 1,000 ML IV (09:04)
[2017-11-09] MEDS: FERROUS SULFATE (EC) 325 MG TAB PO (09:10)
[2017-11-09] MEDS: ASCORBIC ACID 500 MG TAB GTB ×2 (09:10→20:04)
[2017-11-09] MEDS: CITRIC ACID/SODIUM CITRATE 15 ML CUP GTB ×2 (09:11→20:05)
[2017-11-09] MEDS: LANSOPRAZOLE 30 MG CAP GTB (09:12)
[2017-11-09] MEDS: ASPIRIN 81 MG TAB GTB (09:12)
[2017-11-09] MEDS: CARBOXYMETHYLCELLULOSE 0.5% 0.1 ML OPH BOTH EYES ×2 (10:51→21:43)
[2017-11-09] MEDS ORDERED: TOBRAMYCIN IV PER PHARMACY XX (12:30)
[2017-11-09] MEDS: ZYVOX 600 MG TAB PO ×2 (13:08→20:04)
[2017-11-09] MEDS ORDERED: PENDING SANTYL ORDER FOR WOUND CARE XX (13:30)
[2017-11-09] MEDS: TOBRAMYCIN 100 MG in SOD CHLORIDE 0.9% 50 ML IVPB (14:19)
[2017-11-09] MEDS: LEVALBUTEROL (NEB) 1.25 MG/0.5 ML AMP HHN ×2 (15:51→19:54)
[2017-11-09] MEDS: IPRATROPIUM (NEB) 0.5 MG/2.5 ML AMP HHN ×2 (15:51→19:54)
[2017-11-09] MEDS: SODIUM HYPOCHLORITE 0.125% 473 ML BTL IRR (21:43)
[2017-11-09] MEDS: DEXTROSE 5%-0.45% NACL 1,000 ML IV (21:47)
[2017-11-09] MEDS: morphine 2 MG INJ IV (21:47)
[2017-11-10] MEDS: LEVALBUTEROL (NEB) 1.25 MG/0.5 ML AMP HHN ×5 (01:24→19:56)
[2017-11-10] MEDS: IPRATROPIUM (NEB) 0.5 MG/2.5 ML AMP HHN ×5 (01:24→19:56)
[2017-11-10] MEDS: LORAZEPAM 2 MG INJ IV (03:38)
[2017-11-10] MEDS: PANTOPRAZOLE 40 MG INJ IV (06:16)
[2017-11-10] MEDS: ASPIRIN 81 MG TAB GTB (08:01)
[2017-11-10] MEDS: ZYVOX 600 MG TAB PO ×2 (08:02→20:00)
[2017-11-10] MEDS: ASCORBIC ACID 500 MG TAB GTB ×2 (08:02→20:00)
[2017-11-10] MEDS: CITRIC ACID/SODIUM CITRATE 15 ML CUP GTB ×2 (08:02→20:00)
[2017-11-10] MEDS: FERROUS SULFATE (EC) 325 MG TAB PO (08:02)
[2017-11-10] MEDS: SODIUM HYPOCHLORITE 0.125% 473 ML BTL IRR ×2 (08:24→20:05)
[2017-11-10] MEDS: DEXTROSE 5%-0.45% NACL 1,000 ML IV ×2 (08:25→15:30)
[2017-11-10 08:32] LABS: AADO2 Arterial 26.1 mmHg (7.0-24.0); Allen Test ACCEPTAB; Arterial Base Excess -3.3 mmol/L (-3.0-3); Arterial Blood Gas Oxygen Sat 98.7 mmHG (95.0-100.0); Arterial COHb 0.3 % (0.0-3.0); Arterial HCO3 21.7 mmol/L (22.0-26.0); Arterial MetHb 0.4 % (0.0-1.5); Arterial Total Hemglobin 8.5 g/dl (12.0-18.0); Arterial pCO2 38.5 mmhg (35-45); MODE VENT - AC; Site Left Radial
[2017-11-10 09:05] LABS: ADD MAN DIFF? NO
[2017-11-10 09:09] LABS: BASOPHILS % 0.9 % (0.0-2.0); EOSINOPHILS # 0.6 10^3/ul (0.0-0.5); EOSINOPHILS % 16.4 % (0.0-7.0); HEMATOCRIT 26.9 % (42.0-52.0); HEMOGLOBIN 8.1 g/dl (14.0-18.0); LYMPHOCYTES # 0.7 10^3/ul (0.8-2.9); LYMPHOCYTES % 18.7 % (15.0-51.0); MEAN CORPUSCULAR HEMOGLOBIN 28.2 pg (29.0-33.0); MEAN CORPUSCULAR HGB CONC 30.1 g/dl (32.0-37.0); MEAN CORPUSCULAR VOLUME 93.7 fl (82.0-101.0); MEAN PLATELET VOLUME 10.9 fl (7.4-10.4); MONOCYTE # 0.3 10^3/ul (0.3-0.9); MONOCYTES % 8.4 % (0.0-11.0); NEUTROPHIL # 1.9 10^3/ul (1.6-7.5); NEUTROPHILS % 55.3 % (39.0-77.0); PLATELET COUNT 111 10^3/UL (140-415); RED BLOOD COUNT 2.87 10^6/ul (4.70-6.10); RED CELL DISTRIBUTION WIDTH 19.4 % (11.5-14.5)
[2017-11-10 09:09] LABS: WHITE BLOOD COUNT 3.5 10^3/ul (4.8-10.8)
[2017-11-10 09:31] LABS: ANION GAP 13 (8-16); BLOOD UREA NITROGEN 13 mg/dl (7-20); CALCIUM 8.5 mg/dl (8.4-10.2); CARBON DIOXIDE 21 mmol/L (21-31); CHLORIDE 116 mmol/L (97-110); CREATININE 0.73 mg/dl (0.61-1.24); GLUCOSE 90 mg/dl (70-220); POTASSIUM 3.8 mmol/L (3.5-5.1); SODIUM 146 mmol/L (135-144)
[2017-11-10] MEDS: CARBOXYMETHYLCELLULOSE 0.5% 0.1 ML OPH BOTH EYES ×2 (12:20→20:05)
[2017-11-10] MEDS: TOBRAMYCIN 100 MG in SOD CHLORIDE 0.9% 50 ML IVPB (15:46)
[2017-11-10] MEDS: hydrALAzine 20 MG INJ IV (20:05)
[2017-11-11] MEDS: LEVALBUTEROL (HFA) 15 GM INHALER INH ×4 (01:40→20:43)
[2017-11-11] MEDS: IPRATROPIUM (HFA) 12.9 GM INHALER INH ×3 (01:41→20:43)
[2017-11-11] MEDS: DEXTROSE 5%-0.45% NACL 1,000 ML IV ×2 (04:26→12:00)
[2017-11-11] MEDS: PANTOPRAZOLE 40 MG INJ IV (04:26)
[2017-11-11 07:24] LABS: WHITE BLOOD COUNT 3.6 10^3/ul (4.8-10.8)
[2017-11-11 07:24] LABS: HEMATOCRIT 23.5 % (42.0-52.0); HEMOGLOBIN 7.3 g/dl (14.0-18.0); MEAN CORPUSCULAR HGB CONC 31.1 g/dl (32.0-37.0); MEAN CORPUSCULAR VOLUME 93.3 fl (82.0-101.0); MEAN PLATELET VOLUME 10.5 fl (7.4-10.4); PLATELET COUNT 115 10^3/UL (140-415); RED BLOOD COUNT 2.52 10^6/ul (4.70-6.10); RED CELL DISTRIBUTION WIDTH 19.3 % (11.5-14.5)
[2017-11-11 07:41] LABS: PROTIME 14.4 Sec (11.9-14.9); PT RATIO 1.1
[2017-11-11 07:42] LABS: PARTIAL THROMBOPLASTIN TIME 39.1 Sec (25.0-35.0)
[2017-11-11 07:47] LABS: ANION GAP 12 (8-16); BLOOD UREA NITROGEN 10 mg/dl (7-20); CALCIUM 8.2 mg/dl (8.4-10.2); CARBON DIOXIDE 21 mmol/L (21-31); CHLORIDE 116 mmol/L (97-110); CREATININE 0.83 mg/dl (0.61-1.24); GLUCOSE 75 mg/dl (70-220); POTASSIUM 3.4 mmol/L (3.5-5.1); SODIUM 146 mmol/L (135-144)
[2017-11-11 07:54] LABS: ADD MAN DIFF? YES
[2017-11-11] MEDS: ZYVOX 600 MG TAB PO (08:06)
[2017-11-11] MEDS: CITRIC ACID/SODIUM CITRATE 15 ML CUP GTB ×2 (08:06→20:07)
[2017-11-11] MEDS: FERROUS SULFATE (EC) 325 MG TAB PO (08:06)
[2017-11-11] MEDS: ASCORBIC ACID 500 MG TAB GTB ×2 (08:06→20:08)
[2017-11-11] MEDS: ASPIRIN 81 MG TAB GTB (08:06)
[2017-11-11] MEDS: CARBOXYMETHYLCELLULOSE 0.5% 0.1 ML OPH BOTH EYES ×2 (08:07→20:09)
[2017-11-11] MEDS: SODIUM HYPOCHLORITE 0.125% 473 ML BTL IRR ×2 (08:07→20:08)
[2017-11-11 09:15] LABS: ANISOCYTOSIS 2+ (0-0); BAND NEUTROPHILS % (M) 2 % (0-4); EOSINOPHILS % (M) 26 % (0-7); LYMPHOCYTES #M 0.7 10^3/ul (0.8-2.9); LYMPHOCYTES % (M) 22 % (15-51); MICROCYTOSIS 1+ (0-0); MONOCYTE #M 0.2 10^3/ul (0.3-0.9); MONOCYTES % (M) 8 % (0-11); PLATELET ESTIMATE DECREASED; POLYCHROMASIA 3+ (0-0); SEG NEUT #M 1.5 10^3/ul (1.6-7.5); SEGMENTED NEUTROPHILS (M) % 43 % (39-77); SMUDGE%M 12 % (0-0)
[2017-11-11] MEDS: POTASSIUM CHLORIDE 50 ML IVPB ×2 (10:00→10:54)
[2017-11-11] MEDS: POTASSIUM CHLORIDE 10 MEQ in DEXTROSE 5% 50 ML IVPB ×2 (11:28→12:14)
[2017-11-11] MEDS: DAPTOMYCIN 500 MG in SOD CHLORIDE 0.9% 100 ML IVPB (13:16)
[2017-11-11] MEDS: TOBRAMYCIN 100 MG in SOD CHLORIDE 0.9% 50 ML IVPB (14:00)
[2017-11-11] MEDS: LIDOCAINE 1% (MPF) 5 ML VIAL SC (14:00)
[2017-11-11 14:09] LABS: AHG CROSSMATCH 1 1
[2017-11-11] MEDS: LORAZEPAM 2 MG INJ IV (14:34)
[2017-11-11] MEDS: CEFAZOLIN 2 GM/50 ML (PMX) 50 ML IVPB (16:39)
[2017-11-11] MEDS: TOBRAMYCIN 80 MG in SOD CHLORIDE 0.9% 50 ML IVPB (18:37)
[2017-11-11] MEDS: ACETAMINOPHEN 650MG/20.3ML CUP GTB (20:07)
[2017-11-12] MEDS: LEVALBUTEROL (HFA) 15 GM INHALER INH ×4 (01:29→19:59)
[2017-11-12] MEDS: IPRATROPIUM (HFA) 12.9 GM INHALER INH ×3 (01:29→19:59)
[2017-11-12] MEDS: DEXTROSE 5%-0.45% NACL 1,000 ML IV ×2 (01:33→18:10)
[2017-11-12] MEDS: hydrALAzine 20 MG INJ IV (04:05)
[2017-11-12] MEDS: PANTOPRAZOLE 40 MG INJ IV (04:05)
[2017-11-12 06:48] LABS: ADD MAN DIFF? NO
[2017-11-12 06:56] LABS: WHITE BLOOD COUNT 4.9 10^3/ul (4.8-10.8)
[2017-11-12 06:56] LABS: BASOPHILS % 0.8 % (0.0-2.0); EOSINOPHILS # 0.8 10^3/ul (0.0-0.5); EOSINOPHILS % 15.5 % (0.0-7.0); HEMATOCRIT 27.3 % (42.0-52.0); HEMOGLOBIN 8.4 g/dl (14.0-18.0); LYMPHOCYTES % 20.6 % (15.0-51.0); MEAN CORPUSCULAR HEMOGLOBIN 28.8 pg (29.0-33.0); MEAN CORPUSCULAR HGB CONC 30.8 g/dl (32.0-37.0); MEAN CORPUSCULAR VOLUME 93.5 fl (82.0-101.0); MEAN PLATELET VOLUME 9.7 fl (7.4-10.4); MONOCYTE # 0.6 10^3/ul (0.3-0.9); MONOCYTES % 11.3 % (0.0-11.0); NEUTROPHIL # 2.5 10^3/ul (1.6-7.5); NEUTROPHILS % 51.6 % (39.0-77.0); PLATELET COUNT 120 10^3/UL (140-415); RED BLOOD COUNT 2.92 10^6/ul (4.70-6.10); RED CELL DISTRIBUTION WIDTH 19.3 % (11.5-14.5)
[2017-11-12 07:16] LABS: CREATINE KINASE < 20 IU/L (23-200)
[2017-11-12 07:18] LABS: ANION GAP 8 (8-16); BLOOD UREA NITROGEN 9 mg/dl (7-20); CALCIUM 8.2 mg/dl (8.4-10.2); CARBON DIOXIDE 24 mmol/L (21-31); CHLORIDE 115 mmol/L (97-110); CREATININE 0.82 mg/dl (0.61-1.24); GLUCOSE 105 mg/dl (70-220); POTASSIUM 3.2 mmol/L (3.5-5.1); SODIUM 144 mmol/L (135-144)
[2017-11-12] MEDS: CITRIC ACID/SODIUM CITRATE 15 ML CUP GTB ×2 (10:02→20:48)
[2017-11-12] MEDS: ASCORBIC ACID 500 MG TAB GTB ×2 (10:02→20:47)
[2017-11-12] MEDS: CARBOXYMETHYLCELLULOSE 0.5% 0.1 ML OPH BOTH EYES ×2 (10:02→20:48)
[2017-11-12] MEDS: FERROUS SULFATE (EC) 325 MG TAB PO (10:03)
[2017-11-12] MEDS: ASPIRIN 81 MG TAB GTB (10:07)
[2017-11-12] MEDS: SODIUM HYPOCHLORITE 0.125% 473 ML BTL IRR ×2 (10:08→20:48)
[2017-11-12] MEDS ORDERED: POTASSIUM CHLORIDE (SR) 10 MEQ TAB PO (10:30)
[2017-11-12] MEDS: DAPTOMYCIN 500 MG in SOD CHLORIDE 0.9% 100 ML IVPB (12:31)
[2017-11-12] MEDS: POTASSIUM CHLORIDE 20 MEQ POWDER FOR ORAL SOLN PO (13:19)
[2017-11-13] MEDS: LEVALBUTEROL (HFA) 15 GM INHALER INH ×4 (01:37→19:47)
[2017-11-13] MEDS: IPRATROPIUM (HFA) 12.9 GM INHALER INH ×3 (01:37→19:47)
[2017-11-13] MEDS: DEXTROSE 5%-0.45% NACL 1,000 ML IV ×2 (04:00→14:53)
[2017-11-13] MEDS: PANTOPRAZOLE 40 MG INJ IV (06:00)
[2017-11-13] MEDS: TOBRAMYCIN 80 MG in SOD CHLORIDE 0.9% 50 ML IVPB (06:00)
[2017-11-13] MEDS: ASPIRIN 81 MG TAB GTB (08:13)
[2017-11-13] MEDS: CITRIC ACID/SODIUM CITRATE 15 ML CUP GTB ×2 (08:13→21:31)
[2017-11-13] MEDS: FERROUS SULFATE 60 MG/ML 5ML CUP GTB (08:13)
[2017-11-13] MEDS: SODIUM HYPOCHLORITE 0.125% 473 ML BTL IRR ×2 (08:13→21:31)
[2017-11-13] MEDS: ASCORBIC ACID 500 MG TAB GTB ×2 (08:13→21:31)
[2017-11-13] MEDS: CARBOXYMETHYLCELLULOSE 0.5% 0.1 ML OPH BOTH EYES ×2 (09:44→21:31)
[2017-11-13] MEDS: DAPTOMYCIN 500 MG in SOD CHLORIDE 0.9% 100 ML IVPB (12:40)
[2017-11-13] MEDS: ACETAMINOPHEN 650MG/20.3ML CUP GTB (18:54)
[2017-11-14] MEDS: LEVALBUTEROL (HFA) 15 GM INHALER INH ×4 (01:28→19:32)
[2017-11-14] MEDS: PANTOPRAZOLE 40 MG INJ IV (06:28)
[2017-11-14] MEDS: DEXTROSE 5%-0.45% NACL 1,000 ML IV (06:28)
[2017-11-14] MEDS: IPRATROPIUM (HFA) 12.9 GM INHALER INH ×3 (07:15→19:32)
[2017-11-14 07:20] LABS: BLOOD UREA NITROGEN 16 mg/dl (7-20)
[2017-11-14 07:20] LABS: CREATININE 0.75 mg/dl (0.61-1.24)
[2017-11-14] MEDS: ASCORBIC ACID 500 MG TAB GTB ×2 (09:03→21:15)
[2017-11-14] MEDS: SODIUM HYPOCHLORITE 0.125% 473 ML BTL IRR ×2 (09:03→21:00)
[2017-11-14] MEDS: ASPIRIN 81 MG TAB GTB (09:03)
[2017-11-14] MEDS: CITRIC ACID/SODIUM CITRATE 15 ML CUP GTB ×2 (09:04→21:15)
[2017-11-14] MEDS: FERROUS SULFATE 60 MG/ML 5ML CUP GTB (09:04)
[2017-11-14] MEDS: CARBOXYMETHYLCELLULOSE 0.5% 0.1 ML OPH BOTH EYES ×2 (09:54→21:21)
[2017-11-14 14:05] LABS: ADD MAN DIFF? NO
[2017-11-14 14:10] LABS: BASOPHILS % 0.5 % (0.0-2.0); EOSINOPHILS # 0.8 10^3/ul (0.0-0.5); EOSINOPHILS % 11.9 % (0.0-7.0); HEMATOCRIT 26.2 % (42.0-52.0); LYMPHOCYTES # 1.4 10^3/ul (0.8-2.9); LYMPHOCYTES % 20.3 % (15.0-51.0); MEAN CORPUSCULAR HGB CONC 30.5 g/dl (32.0-37.0); MEAN CORPUSCULAR VOLUME 94.9 fl (82.0-101.0); MEAN PLATELET VOLUME 10.2 fl (7.4-10.4); MONOCYTE # 0.8 10^3/ul (0.3-0.9); MONOCYTES % 11.4 % (0.0-11.0); NEUTROPHIL # 3.7 10^3/ul (1.6-7.5); NEUTROPHILS % 55.6 % (39.0-77.0); PLATELET COUNT 136 10^3/UL (140-415); RED BLOOD COUNT 2.76 10^6/ul (4.70-6.10); RED CELL DISTRIBUTION WIDTH 19.9 % (11.5-14.5)
[2017-11-14 14:10] LABS: WHITE BLOOD COUNT 6.6 10^3/ul (4.8-10.8)
[2017-11-14] MEDS: DAPTOMYCIN 500 MG in SOD CHLORIDE 0.9% 100 ML IVPB (14:12)
[2017-11-14 14:35] LABS: ANION GAP 9 (8-16); BLOOD UREA NITROGEN 16 mg/dl (7-20); CALCIUM 7.9 mg/dl (8.4-10.2); CARBON DIOXIDE 24 mmol/L (21-31); CHLORIDE 109 mmol/L (97-110); CREATININE 0.82 mg/dl (0.61-1.24); GLUCOSE 117 mg/dl (70-220); POTASSIUM 3.7 mmol/L (3.5-5.1); SODIUM 138 mmol/L (135-144)
[2017-11-14] MEDS ORDERED: EPOETIN 10000 UNITS/ML (NON ESRD/NON ONCOLOGY) SC (17:00)
[2017-11-14] MEDS: TOBRAMYCIN 80 MG in SOD CHLORIDE 0.9% 50 ML IVPB (18:10)
[2017-11-14] MEDS: EPOETIN 10000 UNITS/ML (NON ESRD/NON ONCOLOGY) SC (18:59)
[2017-11-14 20:34] LABS: AHG CROSSMATCH 1 1
[2017-11-14] MEDS: ACETAMINOPHEN 650MG/20.3ML CUP GTB (21:14)
[2017-11-15] MEDS: LEVALBUTEROL (HFA) 15 GM INHALER INH ×3 (01:13→13:33)
[2017-11-15] MEDS: ACETAMINOPHEN 650MG/20.3ML CUP GTB (03:33)
[2017-11-15] MEDS ORDERED: PANTOPRAZOLE (EC) 40 MG TAB PO (06:00)
[2017-11-15] MEDS: PANTOPRAZOLE 40 MG INJ IV (06:11)
[2017-11-15 08:03] LABS: ADD MAN DIFF? NO
[2017-11-15 08:07] LABS: WHITE BLOOD COUNT 5.9 10^3/ul (4.8-10.8)
[2017-11-15 08:07] LABS: BASOPHILS % 0.5 % (0.0-2.0); EOSINOPHILS # 0.8 10^3/ul (0.0-0.5); EOSINOPHILS % 13.3 % (0.0-7.0); HEMOGLOBIN 8.9 g/dl (14.0-18.0); LYMPHOCYTES # 1.4 10^3/ul (0.8-2.9); MEAN CORPUSCULAR HEMOGLOBIN 28.3 pg (29.0-33.0); MEAN CORPUSCULAR HGB CONC 30.7 g/dl (32.0-37.0); MEAN CORPUSCULAR VOLUME 92.4 fl (82.0-101.0); MEAN PLATELET VOLUME 10.5 fl (7.4-10.4); MONOCYTE # 0.8 10^3/ul (0.3-0.9); MONOCYTES % 14.2 % (0.0-11.0); NEUTROPHIL # 2.9 10^3/ul (1.6-7.5); NEUTROPHILS % 48.5 % (39.0-77.0); PLATELET COUNT 135 10^3/UL (140-415); POSITIVE DIFF @See below; RED BLOOD COUNT 3.14 10^6/ul (4.70-6.10); RED CELL DISTRIBUTION WIDTH 21.2 % (11.5-14.5)
[2017-11-15] MEDS: IPRATROPIUM (HFA) 12.9 GM INHALER INH ×2 (08:18→13:32)
[2017-11-15 08:28] LABS: ANION GAP 9 (8-16); BLOOD UREA NITROGEN 19 mg/dl (7-20); CALCIUM 7.7 mg/dl (8.4-10.2); CARBON DIOXIDE 24 mmol/L (21-31); CHLORIDE 110 mmol/L (97-110); CREATININE 0.79 mg/dl (0.61-1.24); GLUCOSE 110 mg/dl (70-220); POTASSIUM 3.8 mmol/L (3.5-5.1); SODIUM 139 mmol/L (135-144)
[2017-11-15] MEDS: ASPIRIN 81 MG TAB GTB (09:44)
[2017-11-15] MEDS: CITRIC ACID/SODIUM CITRATE 15 ML CUP GTB (09:45)
[2017-11-15] MEDS: FERROUS SULFATE 60 MG/ML 5ML CUP GTB (09:45)
[2017-11-15] MEDS: ASCORBIC ACID 500 MG TAB GTB (09:45)
[2017-11-15] MEDS: CARBOXYMETHYLCELLULOSE 0.5% 0.1 ML OPH BOTH EYES (11:13)
[2017-11-15] MEDS: SODIUM HYPOCHLORITE 0.125% 473 ML BTL IRR (11:14)
[2017-11-15] MEDS: DAPTOMYCIN 500 MG in SOD CHLORIDE 0.9% 100 ML IVPB (12:32)
[2017-11-16] MEDS ORDERED: TOBRAMYCIN IVPB (18:00)
[2017-11-16] MEDS ORDERED: SOD CHLORIDE 0.9% IVPB (18:00)
[2017-11-16] MEDS ORDERED: TOBRAMYCIN 100 MG in SOD CHLORIDE 0.9% 50 ML IVPB (18:00)
[2017-11-21] MEDS ORDERED: EPOETIN 10000 UNITS/ML (NON ESRD/NON ONCOLOGY) SC (17:00)
== END 2017-11-15 19:55 | disposition home or self-care (01) | DRG 314 ==
LOC: ICU 17:48 → TEL 11-10 05:04 → E/R 14:41
PROC: 0DH68UZ Insertion of Feeding Device into Stomach, Via Natural or Artificial Opening Endoscopic (ICD-10-PCS; principal; 2017-11-11 16:50)
PROC: 02HV33Z Insertion of Infusion Device into Superior Vena Cava, Percutaneous Approach (ICD-10-PCS; 2017-11-11 16:50)
DX: T82.524A Displacement of infusion catheter, initial encounter (principal); J18.9 Pneumonia, unspecified organism; L89.154 Pressure ulcer of sacral region, stage 4; K94.23 Gastrostomy malfunction; J96.10 Chronic respiratory failure, unspecified whether with hypoxia or hypercapnia; Z99.11 Dependence on respirator [ventilator] status; G82.20 Paraplegia, unspecified; N39.0 Urinary tract infection, site not specified; I69.359 Hemiplegia and hemiparesis following cerebral infarction affecting unspecified side; M86.9 Osteomyelitis, unspecified; R65.10 Systemic inflammatory response syndrome (SIRS) of non-infectious origin without acute organ dysfunction; J90 Pleural effusion, not elsewhere classified; J98.11 Atelectasis; N17.9 Acute kidney failure, unspecified; R13.10 Dysphagia, unspecified; E87.6 Hypokalemia; D64.9 Anemia, unspecified; Y95 Nosocomial condition; Y84.6 Urinary catheterization as the cause of abnormal reaction of the patient, or of later complication, without mention of misadventure at the time of the procedure; D50.0 Iron deficiency anemia secondary to blood loss (chronic); K22.2 Esophageal obstruction; N31.9 Neuromuscular dysfunction of bladder, unspecified; F03.90 Unspecified dementia, unspecified severity, without behavioral disturbance, psychotic disturbance, mood disturbance, and anxiety; K21.9 Gastro-esophageal reflux disease without esophagitis; J44.9 Chronic obstructive pulmonary disease, unspecified; I12.9 Hypertensive chronic kidney disease with stage 1 through stage 4 chronic kidney disease, or unspecified chronic kidney disease; N18.9 Chronic kidney disease, unspecified; K80.20 Calculus of gallbladder without cholecystitis without obstruction; H54.40 Blindness, one eye, unspecified eye; B95.2 Enterococcus as the cause of diseases classified elsewhere; B96.89 Other specified bacterial agents as the cause of diseases classified elsewhere; I69.398 Other sequelae of cerebral infarction; Q54.9 Hypospadias, unspecified; I69.391 Dysphagia following cerebral infarction; Z87.440 Personal history of urinary (tract) infections; Z93.1 Gastrostomy status; Z93.0 Tracheostomy status
CPT/HCPCS: 36430; 36569; 36600; 71045; 76937; 80048; 80053; 80200; 82550; 82565; 82803; 82962; 83605; 84484; 84520; 85025; 85610; 85730; 86850; 86900; 86901; 86920; 87040; 87081; 93005; 94002; 94003; 94640; 96365; 96366; 96375; 96376; 99285-25

== ENCOUNTER 2017-11-27 10:53 | Emergency (ER) | payer MEDICARE, OTHER ==
[2017-11-27] MEDS: LIDOCAINE 1% (MPF) 5 ML VIAL SC (11:30)
[2017-11-27] MEDS: SOD CHLORIDE 0.9% 100 ML (15:35)
== END 2017-11-27 17:30 | disposition home or self-care (01) ==
LOC: E/R 10:53
DX: T80.218A Other infection due to central venous catheter, initial encounter (principal); Y71.2 Prosthetic and other implants, materials and accessory cardiovascular devices associated with adverse incidents; Z79.82 Long term (current) use of aspirin
CPT/HCPCS: 36569; 71045; 76937; 94002; 99285-25